=== PATIENT | female | born 1950 | race Caucasian/White ===

== ENCOUNTER → 2016-11-21 | Day surgery (SDC) | payer MEDICARE, OTHER ==
[~2016-11-21] MED LIST: Acetaminophen/oxyCODONE 325-5 MG Tab PO PRN; Albuterol/Ipratropium 3.0-0.5 MG/3 ML Neb Soln NEB ONE; Aluminum Hydroxide/Magnesium Hydroxide/Simethicone Susp 30 ML Cup PO PRN; Aspirin 325 MG Tab.EC PO SCH; Bisacodyl 5 MG Tab PO PRN; Bupivacaine 0.5% 30 ML SDV ONE; Bupivacaine 0.5%/EPINEPHrine 1:200,000 50 ML MDV ONE; Dexamethasone 4 MG/ML SDV ONE; Docusate Sodium 100 MG Cap PO PRN; EPINEPHrine 1:1000 1 MG/ML SDV ONE; Ketorolac 30 MG/ML SDV IVPUSH PRN; Lactated Ringers 1,000 ML IV SCH; Lactated Ringers 1,000 ML ONE; Lidocaine 1% 2 ML ONE; Magnesium Hydroxide 400 MG/5 ML Susp 30 ML Cup PO PRN; Morphine 2 MG/ML Syringe IVPUSH PRN; Naloxone 0.4 MG/ML SDV IVPUSH PRN; Neostigmine Methylsulfate 1 MG/ML 5 ML Syringe ONE; Ondansetron 4 MG/2 ML SDV IVPUSH PRN; Ondansetron 4 MG/2 ML SDV ONE; Povidone-Iodine 10% Soln 118.25 ML Bottle ONE; Propofol 200 MG/20 ML SDV ONE; Rocuronium 50 MG/5 ML Vial ONE; Sennosides 8.6 MG Tab PO PRN; Sodium Chloride 0.9% 10 ML Syringe FLUSH SCH; Zolpidem 5 MG Tab PO PRN; ceFAZolin 1 GM in Premix Bag 1 BAG IV ONE; diphenhydrAMINE 50 MG/ML SDV IVPUSH PRN; fentaNYL 100 MCG/2 ML SDV IVPUSH ONE; fentaNYL 100 MCG/2 ML SDV ONE; fentaNYL 250 MCG/5 ML SDV ONE; hydrOXYzine HCl 50 MG/ML SDV IM ONE; traMADol 50 MG Tab PO PRN
[2016-11-21 11:59] VITALS: BP 139/75
--- NOTE | 2016-11-21 14:18 | OR ---
DATE OF PROCEDURE: 11/21/2016 PREOPERATIVE DIAGNOSIS: Right rotator cuff tear and subacromial decompression and biceps tendon rupture. POSTOPERATIVE DIAGNOSIS: Right rotator cuff tear and subacromial decompression and biceps tendon rupture. PROCEDURE: Right shoulder arthroscopy for subacromial decompression and open rotator cuff repair. NUMERICAL CONTROL MACHINE OPERATOR: LUIS FERNANDO Valentine. ANESTHESIA: Interscalene block plus general endotracheal intubation. FLUIDS: Lactated Ringer solution. ESTIMATED BLOOD LOSS: 20 mL. COMPLICATIONS: None. SPECIMEN: None. DISPOSITION: Stable to PACU. INDICATIONS FOR THE PROCEDURE: The patient was seen preoperatively in the clinic. She had previously had an injury to her right shoulder. She is a very active lady. Preoperative imaging confirmed the above-mentioned diagnosis. Risks and benefits of the procedure were explained to the patient. Informed consent was obtained. DETAILS OF PROCEDURE: The patient was seen preoperatively by myself and the Anesthesia staff in the preop holding area where the operative site was marked. She was brought to the operative suite by the anesthesia staff where general anesthesia was administered. She was placed into a beach chair position with all extremities well padded. She had previously had an interscalene block prior to positioning. The right upper extremity was then prepped and draped in a sterile manner. Time-out was called identifying the correct patient, the correct procedure, the correct site, and the antibiotics had begun with an appropriate period of time. An incision was made from the posterior portal, and then the trocar was used to enter the joint. The joint was visualized using arthroscopy. The biceps tendon was not present and most likely avulsed off the superior labrum. The labrum was scarred down, most likely chronically. The remainder of the joint looked to have good cartilage present. No other abnormalities were noted in the joint. I then removed the trocar and then went into the subacromial space and then used a knife to make a lateral portal. I then used a shaver to clean out underneath the subacromial space as well as into the clavicle and did a bursectomy. I then used an ablation unit to clear the acromion and then used a bur to bur the acromion down. Bleeding was controlled with the ablation unit. After this had been accomplished, we then removed our instruments and then made an incision off the anterior aspect of the acromion distally approximately 5 cm, taking care not to incise through the axillary nerve, splitting the deltoid muscle. The raphe was not easily visualized. Gelpi retractors were used as well as a Como retractor. The rotator cuff had retracted significantly. I used a Gelpi to push down the humeral head and then against the acromion. I was then able to visualize the rotator cuff. I then placed #2 FiberWire through it with 3 passes and then confirmed that I was able to retract it. I used [place] and a Woodall underneath and over the rotator cuff to free it up. I then placed my medial anchors with the Arthrex SpeedBridge and then placed the sutures from inferior to superior. We then took those sutures out and crossed them and approximated where to place our lateral row. We then put our lateral row of anchors in. I did incorporate the #2 FiberWire into the posterior anchor. Once this had been accomplished, and I put the shoulder through range of motion showing full range of motion and excellent mobility of the rotator cuff, we then copiously irrigated with saline and then closed the deltoid fascia with 2-0 Vicryl in a continuous manner followed by subcutaneous 2-0 Vicryl sutures followed by 3-0 nylon sutures over the rotator cuff incision as well as the portals followed by sterile dressing and Medipore tape. The patient was then allowed to awaken from anesthesia and taken to the PACU in stable condition. Mikey Lynn DO /[id number]
== END ==
LOC: JP.SDS 05:40
PROVIDERS: ATTEND Orthopaedic Surgery
PROC: 0LQ10ZZ Repair Right Shoulder Tendon, Open Approach (ICD-10-PCS; principal; 2016-11-21)
PROC: 0RNJ0ZZ Release Right Shoulder Joint, Open Approach (ICD-10-PCS; 2016-11-21)
DX: M75.101 Unspecified rotator cuff tear or rupture of right shoulder, not specified as traumatic (principal); M75.21 Bicipital tendinitis, right shoulder; Z79.899 Other long term (current) drug therapy; M19.90 Unspecified osteoarthritis, unspecified site; H40.9 Unspecified glaucoma
CPT/HCPCS: 23420; A9270; C1713; J0171; J0690; J1100; J2405; J2704; J3010; J3410; J7120; J7620; 23410; 29822; 29826